=== PATIENT | female | born 1960 | race Caucasian/White ===

== ENCOUNTER 2022-02-01 17:47 | Inpatient (IN) | payer MEDICARE, OTHER ==
[~2022-02-01] VITALS: Ht 172.7 cm; Wt 51.7 kg
--- NOTE | 2022-02-01 18:06 | NUR ---
Pt denies SI, HI and halucinations. Gave pt dinner tray.
[2022-02-01] MEDS ORDERED: DESV100T PO (18:26)
[2022-02-01] MEDS ORDERED: LEVO88TA5 PO (18:26)
[2022-02-01] MEDS ORDERED: DESV50TA PO (18:26)
[2022-02-01] MEDS ORDERED: GABA600T12 PO (18:26)
[2022-02-01] MEDS ORDERED: HYOS0.1273 SL (18:26)
[2022-02-01] MEDS ORDERED: DIPH1TAB PO (18:26)
[2022-02-01] MEDS ORDERED: LAMO200T10 PO (18:26)
[2022-02-01] MEDS ORDERED: CLON0.5T4 PO (18:26)
[2022-02-01] MEDS ORDERED: TRAZ150T75 PO (18:26)
[2022-02-01] MEDS ORDERED: PROP20TA7 PO (18:26)
[2022-02-01] MEDS ORDERED: ESOMEPRAZOLE DR PO (18:26)
--- NOTE | 2022-02-01 20:28 | NUR ---
transferd to [facility] via [facility] with no distress noted.
[2022-02-01] MEDS ORDERED: BLOOD SUGAR DIAGNOSTIC 1 EACH STRIP VI ONE (20:45)
[2022-02-01] MEDS ORDERED: MAGNESIUM HYDROXIDE 30 ML LIQUID UDC PO PRN (20:45)
[2022-02-01] MEDS ORDERED: MAG HYDROX/AL HYDROX/SIMETH 30 ML LIQUID UDC PO PRN (20:45)
--- NOTE | 2022-02-01 21:30 | NUR ---
GPS: Admitted to unit earlier a 61 yr.old female under the care of / Ambrosio MANRIQUE. Pt.is on a 72 hour hold for GD. Pt.was found in her apt.covered with feces,unable to formulate a plan of self care,per hold. On admission pt.was calm,cooperative,partially oriented and forgetful at times. Poor insight to present situation. Denied pain when asked. Skin assessment done. Personal belongings completed. Pt's rights handbook and advisement given. Unit rules/policies explained. Re-directed prn. Fall precautions initiated.
[2022-02-01] MEDS: TEMAZEPAM 7.5 MG CAPSULE PO PRN (22:44)
[2022-02-01 23:23] VITALS: BP 117/69
[2022-02-02 07:28] VITALS: BP 119/74
[2022-02-02] MEDS: NICOTINE 14 MG/24HR PATCH TD SCH (08:59)
[2022-02-02] MEDS ORDERED: ATOR20TA PO (10:48)
[2022-02-02] MEDS: PROPRANOLOL HCL 20 MG TABLET PO SCH ×2 (12:51→16:06)
[2022-02-02] MEDS: HYOSCYAMINE SULFATE 0.125 MG TABLET SL SCH ×2 (12:52→17:06)
[2022-02-02 15:47] VITALS: BP 98/41
--- NOTE | 2022-02-02 16:02 | NUR ---
received patient is confused and disoriented to herself with poor impulse control at times,isolative stay in her room most of time,compliant with all medication ,refused to attend in group activity ,will continue close monitoring.
[2022-02-02] MEDS: ACETAMINOPHEN 325 MG TABLET PO PRN (16:09)
[2022-02-02] MEDS: GLUCERNA SHAKE 237 ML CAN PO SCH (17:06)
[2022-02-02] MEDS: GABAPENTIN 300 MG CAPSULE PO SCH (20:29)
[2022-02-02] MEDS: TEMAZEPAM 7.5 MG CAPSULE PO PRN (20:32)
[2022-02-02 22:07] VITALS: BP 111/70
[2022-02-02] MEDS: risperiDONE 0.5 MG TABLET PO SCH (22:32)
[2022-02-03] MEDS: HYOSCYAMINE SULFATE 0.125 MG TABLET SL SCH ×4 (00:12→18:05)
[2022-02-03] MEDS: LEVOTHYROXINE SODIUM 88 MCG TABLET PO SCH (06:10)
[2022-02-03] MEDS: PANTOPRAZOLE SODIUM 40 MG TABLET.DR PO SCH (06:12)
--- NOTE | 2022-02-03 06:25 | NUR ---
received patient in her room, awake, responsive to name, A&ox2. Patient compliant with medications, able to make needs known, patient ambulatory and continent. patient provided with fluid and snacks. with good appetite. Patient slept 8.0, with no behavioral issues noted.
[2022-02-03 08:00] VITALS: BP 97/61
[2022-02-03] MEDS: LAMOTRIGINE 25 MG TABLET PO SCH ×2 (08:51→19:59)
[2022-02-03] MEDS: PROPRANOLOL HCL 20 MG TABLET PO SCH ×3 (08:52→17:00)
[2022-02-03] MEDS: GLUCERNA SHAKE 237 ML CAN PO SCH ×2 (08:53→17:59)
[2022-02-03] MEDS: risperiDONE 0.5 MG TABLET PO SCH (08:53)
[2022-02-03] MEDS: NICOTINE 14 MG/24HR PATCH TD SCH (08:54)
--- NOTE | 2022-02-03 14:57 | NUR ---
Received patient awake in her room. A/O X 2 to person, place. Pt. is calm, cooperative, confused. Pt. states "I need my valuable bags because I'm going home now" "This is a nice place but is not where I belong" "Please tell the doctor I'm ready to go home. I did all exams" Patient is compliant with medications. Requires minimal assistance with ADL. Emotional support provided. Fall and safety precautions implemented.
[2022-02-03 16:00] VITALS: BP 106/60
--- NOTE | 2022-02-03 16:20 | NUR ---
SHELLY Initial Discharge Note: Pt currently resides alone at [address] [place] [id number] ([phone]). It is uncertain at this time if pt can safely return to her home upon discharge. Pt is agreeable to discharge to a [place] [facility] for continuation of care. SHELLY will contact pt's brother, Karlso ([phone]) to discuss discharge planning. SHELLY will continue to work with pt, family and MD to ensure a safe and proper discharge plan.
--- NOTE | 2022-02-03 16:24 | NUR ---
Firearms Report: Puller Over completed and submitted a [employer] firearms report for 5150 grave disability certifications. A copy of report has been placed in patient chart.
[2022-02-03 19:58] VITALS: BP 104/65
[2022-02-03] MEDS: GABAPENTIN 300 MG CAPSULE PO SCH (20:00)
[2022-02-03] MEDS: TEMAZEPAM 7.5 MG CAPSULE PO PRN (20:04)
[2022-02-03] MEDS: ATORVASTATIN 20 MG TABLET PO SCH (20:14)
[2022-02-03] MEDS: MIRTAZAPINE 15 MG TABLET PO SCH (20:14)
[2022-02-03] MEDS: risperiDONE 1 MG TABLET PO SCH (20:14)
[2022-02-04] MEDS: HYOSCYAMINE SULFATE 0.125 MG TABLET SL SCH ×4 (00:02→17:16)
[2022-02-04] MEDS: LEVOTHYROXINE SODIUM 88 MCG TABLET PO SCH (05:12)
[2022-02-04] MEDS: ACETAMINOPHEN 325 MG TABLET PO PRN (05:12)
[2022-02-04] MEDS: PANTOPRAZOLE SODIUM 40 MG TABLET.DR PO SCH (05:12)
--- NOTE | 2022-02-04 05:22 | NUR ---
Slept 7.0 today. Medicated once for headache with relief. No further complaint presented. All needs attended and met.
[2022-02-04] MEDS: NICOTINE 14 MG/24HR PATCH TD SCH (06:17)
[2022-02-04 07:30] VITALS: BP 120/77
[2022-02-04 08:00] LABS: PHOSPHOROUS 3.9 mg/dL (2.5-4.9); POTASSIUM 3.9 mmol/L (3.5-5.1)
[2022-02-04 08:14] LABS: HEMATOCRIT 35.2 % (31.2-41.9); MEAN CORPUSCULAR HEMOGLOBIN 31.9 uug (24.7-32.8); MEAN CORPUSCULAR VOLUME 94.8 fL (75.5-95.3); PLATELET COUNT (AUTO) 373 K/uL (179-408)
[2022-02-04] MEDS: LAMOTRIGINE 25 MG TABLET PO SCH ×2 (08:46→20:44)
[2022-02-04] MEDS: risperiDONE 1 MG TABLET PO SCH ×2 (08:46→20:44)
[2022-02-04] MEDS: PROPRANOLOL HCL 20 MG TABLET PO SCH ×3 (08:47→17:00)
[2022-02-04] MEDS: GLUCERNA SHAKE 237 ML CAN PO SCH ×2 (08:47→17:14)
--- NOTE | 2022-02-04 14:58 | NUR ---
Received patient awake in her room. A/O X 2 to person. Pt. is cooperative with nursing care, and compliant with medications. Pt. is pleasant and sociable. Requires minimal assistance with ADL. Pt. encourage to verbalize concerns. Fall and safety precautions implemented.
[2022-02-04] MEDS: LORAZEPAM 1 MG TABLET PO PRN (15:55)
--- NOTE | 2022-02-04 15:57 | NUR ---
Patient is given Ativan 1 mg at 15:55 for anxiety, will be monitored for effectiveness.
[2022-02-04 16:06] VITALS: BP 97/63
[2022-02-04 17:12] VITALS: BP 103/73
[2022-02-04 19:56] VITALS: BP 105/60
[2022-02-04] MEDS: MIRTAZAPINE 15 MG TABLET PO SCH (20:44)
[2022-02-04] MEDS: GABAPENTIN 300 MG CAPSULE PO SCH (20:44)
[2022-02-04] MEDS: ATORVASTATIN 20 MG TABLET PO SCH (20:44)
[2022-02-05] MEDS: HYOSCYAMINE SULFATE 0.125 MG TABLET SL SCH ×5 (00:04→23:57)
[2022-02-05] MEDS: LORAZEPAM 1 MG TABLET PO PRN (02:47)
[2022-02-05] MEDS: ACETAMINOPHEN 325 MG TABLET PO PRN ×2 (02:47→08:12)
[2022-02-05] MEDS: LEVOTHYROXINE SODIUM 88 MCG TABLET PO SCH (06:16)
[2022-02-05] MEDS: PANTOPRAZOLE SODIUM 40 MG TABLET.DR PO SCH (06:22)
[2022-02-05 07:30] VITALS: BP 109/67
[2022-02-05] MEDS: risperiDONE 1 MG TABLET PO SCH ×2 (08:12→20:51)
[2022-02-05] MEDS: LAMOTRIGINE 25 MG TABLET PO SCH ×2 (08:13→20:51)
[2022-02-05] MEDS: PROPRANOLOL HCL 20 MG TABLET PO SCH ×3 (08:13→17:00)
[2022-02-05] MEDS: GLUCERNA SHAKE 237 ML CAN PO SCH ×2 (08:14→17:38)
[2022-02-05] MEDS: NICOTINE 14 MG/24HR PATCH TD SCH (08:14)
[2022-02-05 16:00] VITALS: BP 116/74
--- NOTE | 2022-02-05 19:30 | NUR ---
Received patient awake in her room. A/O X 2 to person. Pt. is cooperative with nursing care, and compliant with medications. Pt. is labile and have outbursts and yelled "You don't have to remind me of my health problems" Requires minimal assistance with ADL. Pt. encourage to vent feelings. Fall and safety precautions implemented.
[2022-02-05] MEDS: GABAPENTIN 300 MG CAPSULE PO SCH (20:51)
[2022-02-05] MEDS: MIRTAZAPINE 15 MG TABLET PO SCH (20:51)
[2022-02-05] MEDS: ATORVASTATIN 20 MG TABLET PO SCH (20:56)
[2022-02-05 21:21] VITALS: BP 93/64
--- NOTE | 2022-02-06 05:27 | NUR ---
Received patient awake, alert in her room, pleasant when approached. Patient able to make needs known. Continent, ambulate w/o assistance. Compliant with medications. Labile mood noted. Snacks and fluid provided. Slept well during shift. Frequent monitoring observed.
[2022-02-06] MEDS: HYOSCYAMINE SULFATE 0.125 MG TABLET SL SCH ×3 (06:10→17:05)
[2022-02-06] MEDS: PANTOPRAZOLE SODIUM 40 MG TABLET.DR PO SCH (06:10)
[2022-02-06] MEDS: LEVOTHYROXINE SODIUM 88 MCG TABLET PO SCH (06:10)
[2022-02-06 07:30] VITALS: BP 120/71
[2022-02-06] MEDS: risperiDONE 1 MG TABLET PO SCH ×2 (08:09→20:48)
[2022-02-06] MEDS: NICOTINE 14 MG/24HR PATCH TD SCH (08:09)
[2022-02-06] MEDS: PROPRANOLOL HCL 20 MG TABLET PO SCH ×3 (08:10→16:46)
[2022-02-06] MEDS: LAMOTRIGINE 25 MG TABLET PO SCH ×2 (08:10→20:48)
[2022-02-06] MEDS: GLUCERNA SHAKE 237 ML CAN PO SCH ×2 (08:11→16:47)
--- NOTE | 2022-02-06 13:06 | NUR ---
SW Family Contact: SW contacted pt's sister in law, Mckenzie ([phone]) per pt's brother Karlos's request and discussed pt's discharge plan. Mckenzie stated that they would like pt to discharge to a long-term facility upon discharge to continue receiving care and get well. SW expressed to Mckenzie that pt's brother, Karlos ([phone]) stated that they can help pt with arrangements to return home when she is medically cleared to return upon discharge from the facility. Mckenzie stated they are both aware and agreeable with that plan. SW discussed treatment and discharge plan with the pt. Pt is aware and agreeable with the discharge plan. Pt is aware her brother Karlos and avypjh-[id number] Mckenzie are aware and agreeable with the current discharge plan.
--- NOTE | 2022-02-06 13:12 | NUR ---
SNF Referral: SW faxed patient's referral packet including: History and Physical, Consultation, Progress Notes, Medication List and Labs to the following facilities for review and possible fdc placement: [facility] [address] [place] [address] ([phone]).
--- NOTE | 2022-02-06 15:36 | NUR ---
Received patient sleeping in her room. A/O X 2 -3 to person, place. Pt. is cooperative, calm, anxious at times. Requires minimal assistance with ADL. Pt. is encourage to verbalize concerns. Fall and safety precautions implemented.
[2022-02-06 16:00] VITALS: BP 108/70
[2022-02-06 19:55] VITALS: BP 106/68
--- NOTE | 2022-02-06 20:30 | NUR ---
RECEIVED PATIENT IN THE DAY ROOM. SHE IS NOTED A/O X 2. SHE IS ABLE TO MAKE HER NEEDS KNOWN. PATIENT NOTED WITH POOR INSIGHT INTO HER ADMISSION TO [facility]. SHE STATED, "I THINK I AM HERE BECAUSE A FELL AND I BUMP THE BACK OF MY HEAD". PATIENT DENIED SI/HI/VH/AH. SHE IS ABLE TO VERBALLY CFS. HER V/S ARE STABLE. SHE IS GIVEN PO FLUIDS AND SNACKS. SHE IS REASSURED FOR HER SAFETY. SAFETY AND FALL PRECAUTION ARE IN PLACE. WILL CONTINUE TO MONITOR.
[2022-02-06] MEDS: ACETAMINOPHEN 325 MG TABLET PO PRN (20:47)
[2022-02-06] MEDS: GABAPENTIN 300 MG CAPSULE PO SCH (20:48)
[2022-02-06] MEDS: MIRTAZAPINE 15 MG TABLET PO SCH (20:48)
[2022-02-06] MEDS: ATORVASTATIN 20 MG TABLET PO SCH (21:44)
[2022-02-07] MEDS: TEMAZEPAM 7.5 MG CAPSULE PO PRN (01:45)
[2022-02-07] MEDS: ACETAMINOPHEN 325 MG TABLET PO PRN ×2 (05:18→15:18)
[2022-02-07] MEDS: HYOSCYAMINE SULFATE 0.125 MG TABLET SL SCH ×4 (05:18→17:02)
[2022-02-07] MEDS: PANTOPRAZOLE SODIUM 40 MG TABLET.DR PO SCH (06:03)
[2022-02-07] MEDS: LEVOTHYROXINE SODIUM 88 MCG TABLET PO SCH (06:03)
[2022-02-07] MEDS: GLUCERNA SHAKE 237 ML CAN PO SCH ×2 (08:00→16:23)
[2022-02-07 08:11] VITALS: BP 91/61
[2022-02-07] MEDS: risperiDONE 1 MG TABLET PO SCH ×2 (08:30→20:23)
[2022-02-07] MEDS: LAMOTRIGINE 25 MG TABLET PO SCH ×2 (08:31→20:23)
[2022-02-07] MEDS: PROPRANOLOL HCL 20 MG TABLET PO SCH ×4 (08:31→16:23)
[2022-02-07] MEDS: NICOTINE 14 MG/24HR PATCH TD SCH (08:34)
--- NOTE | 2022-02-07 12:34 | NUR ---
patient is alert,oriented 2-3 baseline, verbally responsive, no sob, resp even nonlabored, skin warm and dry to touch, patient systolic blood pressure has been noted in 90s and 88/58, tachy pulse is in 100s, patient denied any symptoms such as dizziness, and headache, able to ambulate herself, eating her lunch sitting at edge of the bed, communicating well, held Inderal, DNP Sonal made aware, with orders to run labs, ordered, encouraged to drink fluids, fluids provided, patient agreed to drink fluids, may need IVF, will continue to monitor.
[2022-02-07 14:15] LABS: MEAN CORPUSCULAR HEMOGLOBIN 32.7 uug (24.7-32.8); MEAN CORPUSCULAR VOLUME 95.7 fL (75.5-95.3); PLATELET COUNT (AUTO) 282 K/uL (179-408)
[2022-02-07 14:18] LABS: CREATININE 1.1 mg/dL (0.6-1.3); POTASSIUM 4.5 mmol/L (3.5-5.1)
[2022-02-07] MEDS: LORAZEPAM 1 MG TABLET PO PRN (15:18)
--- NOTE | 2022-02-07 15:34 | NUR ---
patient noted crying, very anxious, encouraged to express feelings, patient requested to take Ativan, administered as ordered.
[2022-02-07 16:32] VITALS: BP 101/60
[2022-02-07 20:00] VITALS: BP 96/57
[2022-02-07] MEDS: ATORVASTATIN 20 MG TABLET PO SCH (20:23)
[2022-02-07] MEDS: MIRTAZAPINE 15 MG TABLET PO SCH (20:23)
[2022-02-07] MEDS: GABAPENTIN 300 MG CAPSULE PO SCH (20:23)
--- NOTE | 2022-02-07 20:30 | NUR ---
received patient in the dayroom. she is noted A/O x 2. she is able to verbalized her feelings and able to make her needs known. Patient appears to minimized her symptoms. she is noted with poor insight into her admission to [facility]. Patient stated, I am here because i bump by head but there is nothing wrong with me". she appears depressed but she denied SI/HI/VH/AH. she is able to verbally CFS. V/S are stable. She is in no distress. PO fluids aNS SNACKS were given. she is reassured for her safety. safety and fall precaution are in place. will continue to monitor.
--- NOTE | 2022-02-07 22:00 | NUR ---
A noise was hear in patient's room. when this display card writer arrived at her room. it was noted the cordless phone on the floor and the battery missing. Patient stated, "i threw the phone in the floor and the battery went flying that way". Patient was asked why she did that. She stated, "I can't communicate with my family, i don't know how to work the phone and i got mad". patient was told that if she gets frustrated just to come and talk to us and get help. no need to destroy property. later, patient was apologetic, she stated to this display card writer, "i am so sorry i threw the phone on the floor, i am really sorry". patient was reassured and redirected. she was able to verbally CFS. will continue to monitor.
[2022-02-08] MEDS: HYOSCYAMINE SULFATE 0.125 MG TABLET SL SCH ×5 (00:20→20:46)
[2022-02-08] MEDS: TEMAZEPAM 7.5 MG CAPSULE PO PRN (00:51)
[2022-02-08] MEDS: PANTOPRAZOLE SODIUM 40 MG TABLET.DR PO SCH (06:37)
[2022-02-08] MEDS: LEVOTHYROXINE SODIUM 88 MCG TABLET PO SCH (06:42)
[2022-02-08 07:30] VITALS: BP 85/56
--- NOTE | 2022-02-08 07:30 | NUR ---
PATIENT IS AWAKE ALERT COOPERATIVE AND COMPLIANT WITH MEDICATIONS AND CARE.WILL CONTINUE TO OBSERVE.
[2022-02-08] MEDS: risperiDONE 1 MG TABLET PO SCH ×2 (08:25→20:47)
[2022-02-08] MEDS: NICOTINE 14 MG/24HR PATCH TD SCH (08:25)
[2022-02-08] MEDS: LAMOTRIGINE 25 MG TABLET PO SCH ×2 (08:25→20:46)
[2022-02-08] MEDS: GLUCERNA SHAKE 237 ML CAN PO SCH ×2 (08:27→17:05)
[2022-02-08] MEDS: PROPRANOLOL HCL 20 MG TABLET PO SCH ×3 (08:52→17:00)
[2022-02-08] MEDS ORDERED: IV NS 1000 ML 1,000 ML IV ONE (10:00)
[2022-02-08] MEDS: REMEDY ESSENTIAL ZINC PASTE 113 GM TOP SCH ×2 (10:12→20:47)
--- NOTE | 2022-02-08 12:05 | NUR ---
DR HIGINIO ABRAMS HERE SEEN PATIENT WITH ORDER FOR ONE LITER BAG OF SALINE BOLUS STATED A GAUGE 20 ANGIO TO HER LEFT UPPER ARM AND THE ONE LITER GIVEN AND COMPLETED AT THIS TIME 1205.
[2022-02-08 18:00] VITALS: BP 109/65
--- NOTE | 2022-02-08 18:03 | NUR ---
BLOOD PRESSURE AT THIS TIME IS 109/65 STILL TRYING TO GET URINE SPECIMEN GOES TO THE BATHROOM VOIDS BY HER SELF AT TIMES AND WHEN A HAT IS PROVIDED BOWEL MOVEMENT NOTED IN THE URINE.WILL ENDORSE.
[2022-02-08 20:10] VITALS: BP 118/62
[2022-02-08] MEDS: MIRTAZAPINE 15 MG TABLET PO SCH (20:46)
[2022-02-08] MEDS: GABAPENTIN 300 MG CAPSULE PO SCH (20:47)
[2022-02-08] MEDS: LORAZEPAM 1 MG TABLET PO PRN (20:47)
[2022-02-08] MEDS: ATORVASTATIN 20 MG TABLET PO SCH (20:47)
[2022-02-09] MEDS: HYOSCYAMINE SULFATE 0.125 MG TABLET SL SCH ×3 (05:06→17:03)
[2022-02-09] MEDS: PANTOPRAZOLE SODIUM 40 MG TABLET.DR PO SCH (06:00)
[2022-02-09] MEDS: LEVOTHYROXINE SODIUM 88 MCG TABLET PO SCH (06:00)
[2022-02-09 07:48] VITALS: BP 99/64
[2022-02-09] MEDS: NICOTINE 14 MG/24HR PATCH TD SCH (08:41)
[2022-02-09] MEDS: LAMOTRIGINE 25 MG TABLET PO SCH ×2 (08:42→20:20)
[2022-02-09] MEDS: risperiDONE 1 MG TABLET PO SCH ×2 (08:42→20:21)
[2022-02-09] MEDS: PROPRANOLOL HCL 20 MG TABLET PO SCH ×3 (08:42→16:20)
[2022-02-09] MEDS: GLUCERNA SHAKE 237 ML CAN PO SCH ×2 (08:43→16:21)
[2022-02-09] MEDS: REMEDY ESSENTIAL ZINC PASTE 113 GM TOP SCH ×2 (08:44→20:22)
--- NOTE | 2022-02-09 12:02 | NUR ---
GPS: Nursing Notes: Thought Disorder: Patient is awake and responding to her name, gets easily irritable when redirected, poor anger management, resistant with nursing care, poor impulse control, redirected and reoriented during shift, unable to formulate a viable plan for self care, forgetful, continue to monitor for safety, disoriented, impaired judgment, disorganized, continue with treatment plan.
[2022-02-09 13:18] LABS: HEMATOCRIT 28.4 % (31.2-41.9); MEAN CORPUSCULAR HEMOGLOBIN 32.5 uug (24.7-32.8); MEAN CORPUSCULAR VOLUME 96.3 fL (75.5-95.3); PLATELET COUNT (AUTO) 240 K/uL (179-408)
[2022-02-09 13:25] LABS: CREATININE 0.9 mg/dL (0.6-1.3); POTASSIUM 3.4 mmol/L (3.5-5.1)
[2022-02-09 16:27] VITALS: BP 88/51
[2022-02-09] MEDS: ACETAMINOPHEN 325 MG TABLET PO PRN (17:03)
[2022-02-09 19:04] VITALS: BP 95/62
[2022-02-09 20:02] VITALS: BP 101/67
[2022-02-09] MEDS: MIRTAZAPINE 15 MG TABLET PO SCH (20:20)
[2022-02-09] MEDS: GABAPENTIN 300 MG CAPSULE PO SCH (20:21)
[2022-02-09] MEDS: ATORVASTATIN 20 MG TABLET PO SCH (20:21)
[2022-02-10] MEDS: HYOSCYAMINE SULFATE 0.125 MG TABLET SL SCH ×3 (00:08→11:58)
[2022-02-10] MEDS: TEMAZEPAM 7.5 MG CAPSULE PO PRN (01:33)
[2022-02-10 01:53] LABS: *BILIRUBIN,URIN NEGATIVE (NEGATIVE); *BLOOD, URINE NEGATIVE (NEGATIVE); *CLARITY,URINE CLEAR (CLEAR); *COLOR,URINE YELLOW (YELLOW); *KETONES,URINE NEGATIVE (NEGATIVE); *UROBILINOGEN,URINE 0.2 E.U./dl (NORMAL); LEUKOCYTE ESTERASE ,URINE NEGATIVE (NEGATIVE); NITRITE, URINE NEGATIVE (NEGATIVE); PH,URINE 5.5 (5.0-8.0); UGLUCOSE NEGATIVE (NEGATIVE)
--- NOTE | 2022-02-10 03:41 | NUR ---
Received patient awake, alert in her room, pleasant when approached. Patient able to make needs known. Continent, ambulate w/o assistance. Compliant with medications. Labile mood noted. Snacks and fluid provided. Slept intermittently. Noted to be in the restroom frequently d/t her IBS. Patient is noted with confusion at times but directable. Urine sample collected. Frequent monitoring observed. Tamazepam given prn with effectivity.
[2022-02-10] MEDS: PANTOPRAZOLE SODIUM 40 MG TABLET.DR PO SCH (06:12)
[2022-02-10] MEDS: LEVOTHYROXINE SODIUM 88 MCG TABLET PO SCH (06:12)
[2022-02-10 07:30] VITALS: BP 100/66
[2022-02-10 08:37] VITALS: BP 100/66
[2022-02-10] MEDS: risperiDONE 1 MG TABLET PO SCH (08:37)
[2022-02-10] MEDS: LAMOTRIGINE 25 MG TABLET PO SCH (08:37)
[2022-02-10] MEDS: NICOTINE 14 MG/24HR PATCH TD SCH (08:37)
[2022-02-10] MEDS: GLUCERNA SHAKE 237 ML CAN PO SCH (08:37)
[2022-02-10] MEDS: PROPRANOLOL HCL 20 MG TABLET PO SCH ×2 (08:37→12:35)
[2022-02-10] MEDS: REMEDY ESSENTIAL ZINC PASTE 113 GM TOP SCH (08:38)
[2022-02-10] MEDS ORDERED: POTASSIUM CHLORIDE 10 MEQ TAB.PRT.SR PO ONE (09:30)
--- NOTE | 2022-02-10 09:54 | NUR ---
SHELLY Discharge Note: Pt will be discharged to [facility] [address] [place] [address] ([phone]) via Ambulance transportation. SHELLY spoke with admin coordinator, Karla and Jaiden at the facility who states they are ready to accept the patient today. Pt is aware and agreeable with discharge plans. Pts [id number], Vita ([phone]) and brother, Karlos ([phone]) are aware and agreeable with the discharge plan. SHELLY provided facility information to Vita. Pt is alert and oriented x3 and is unable to plan for self-care at this time. However, pt is willing to accept care at SNF. Pt denies any suicidal or homicidal ideation. Pt will follow-up at the facility with Psychiatrist, Dr. Henderson and Policy Intern. Dr. Lott. Pt presents with calm mood and congruent affect. PHARMACY: [facility] ([phone] [address] [place] [address].
--- NOTE | 2022-02-10 10:05 | NUR ---
GPS: Nursing Notes: Potassium Level: Staff contacted Kenneth Stringer NP due to patient's potassium level low 3.4, Kenneth Stringer NP ordered Micro-K 10mEq PO X1 now, medication given at this time, per Kenneth Stringer continue with discharge plan, continue with treatment plan.
--- NOTE | 2022-02-10 10:45 | NUR ---
GPS: Nursing Notes: Inderal Medication: Staff informed Kenneth Stringer NP that Inderal medication has been held for 4 days due to low B/P, per Kenneth Stringer NP to continue with medication, Holiday Moulton will monitor B/P before given the medication, continue with discharge plan, continue with treatment plan.
[2022-02-10] MEDS: ACETAMINOPHEN 325 MG TABLET PO PRN (12:58)
--- NOTE | 2022-02-10 13:45 | NUR ---
GPS: Nursing Notes: Discharge Notes: Patient is awake and responding to her name, cooperative with nursing care, compliant with her medications, A/Ox2, disorganized at times, forgetful at times, denies SI/HI, denies AH/VH, denies pain or discomfort at this time, denies SOB, [facility] [place] [address] [place] [address] , report given to facility's nurse - SHANNON Moy supervisor extrusion, transported to facility via ambulance, took all her belongings with her, Patient's heyeeb-ee-afo - Vita and brother - Karlos informed by social services director of discharge. Patient will follow up with Dr. Henderson (psychiatrist) and Dr. Lott (sheepskin pickler) at the facility for aftercare.
== END 2022-02-10 13:45 | DRG 885 ==
LOC: ER 17:47 → GPS 20:23
PROVIDERS: ADMIT Psychiatry & Neurology Psychiatry; ATTEND Nurse Practitioner Acute Care
DX: F31.5 Bipolar disorder, current episode depressed, severe, with psychotic features (principal); K21.9 Gastro-esophageal reflux disease without esophagitis; E03.9 Hypothyroidism, unspecified; E78.5 Hyperlipidemia, unspecified; E86.0 Dehydration; F03.90 Unspecified dementia, unspecified severity, without behavioral disturbance, psychotic disturbance, mood disturbance, and anxiety; F41.9 Anxiety disorder, unspecified; I10 Essential (primary) hypertension; Z20.822 Contact with and (suspected) exposure to COVID-19; F29 Unspecified psychosis not due to a substance or known physiological condition; Z73.6 Limitation of activities due to disability; F17.210 Nicotine dependence, cigarettes, uncomplicated; Z90.710 Acquired absence of both cervix and uterus
CPT/HCPCS: 36415; 83735; 84100; 85025; 87086; 97161; A4663; J7040